=== PATIENT | male | born 1980 | race Caucasian/White ===

== ENCOUNTER 2017-05-13 11:32 | Emergency (ER) | payer OTHER ==
[2017-05-13 11:38] VITALS: O2SAT 96
[2017-05-13] MEDS ORDERED: MOTRIN 600 MG PO ONE (11:41)
[2017-05-13] MEDS ORDERED: MOTRIN 600 MG ONE (11:48)
--- NOTE | 2017-05-13 11:48 | ERPHSYRPT ---
- History of Present Illness Time Seen by Provider: 05/13/17 11:33 Source: patient, family Patient Subjective Stated Complaint: pt states he developed left ankle pain. states pain started 2 days ago. denies any injury. Triage Nursing Assessment: pt pink, warm, dry. no swelling or bruising to ankle noted. pedal pulse strong. Physician History: CC: left ankle pain Hx: 37 y/o patient of Dr Tenorio. He noted left ankle pain for the past few days, feels like ankle is going to give out on him. No fall or injury.No redness or warmth. Some swelling. Takes viocodin at home. Works as security control room officer. He notes accasional left shoulder aching with muscles in spasm. Denies other chest pain. Has some heartburn after greasy meals. Family member inquired about chest pain but he denies and wants no tests of this nature. Lower Extremities Pain: ankle: left Allergies/Adverse Reactions: doxycycline Allergy (Intermediate, Verified 05/13/17 11:38) Rash Home Medications: Hydrocodone Bit/Acetaminophen [Vicodin 5-500 Tablet] 1 each PO TIDPRN 09/07/14 [ History] Clonazepam [Klonopin] 1 mg PO TID 05/13/17 [History] Hx Tetanus, Diphtheria Vaccination/Date Given: Yes (up to date) Hx Influenza Vaccination/Date Given: No Hx Pneumococcal Vaccination/Date Given: No Immunizations Up to Date: Yes - Review of Systems Constitutional: No Fever, No Chills Respiratory: No Dyspnea Cardiac: No Chest Pain Musculoskeletal: Joint Pain (left ankle), Joint Swelling (left ankle), No Fall, No Injury Skin: No Cellulitis, No Rash Neurological: No Headache All Other Systems: Reviewed and Negative - Past Medical History Pertinent Past Medical History: Yes Neurological History: Migraines Cardiac History: No Pertinent History Respiratory History: Other Endocrine Medical History: No Pertinent History Musculoskeletal History: No Pertinent History Psycho-Social History: Anxiety Other Medical History: chronic pain - Past Surgical History Past Surgical History: Yes Other Surgical History: back surgery - Social History Smoking Status: Current every day smoker How long have you smoked: 25 Exposure to second hand smoke: Yes Drug Use: none 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) - Nursing Vital Signs Nursing Vital Signs: Initial Vital Signs Temperature 99.1 F 05/13/17 11:34 Pulse Rate 87 05/13/17 11:34 Respiratory Rate 18 05/13/17 11:34 Blood Pressure 119/73 05/13/17 11:34 O2 Sat by Pulse Oximetry 96 05/13/17 11:34 Pain Scale Pain Intensity 4 - Physical Exam General Appearance: alert Eyes, Ears, Nose, Throat Exam: moist mucous membranes Neck Exam: supple Cardiovascular/Respiratory Exam: normal breath sounds, regular rate/rhythm Hips Exam: left: non-tender Legs Exam: left leg: non-tender Knees Exam: left knee: non-tender, normal inspection Foot Exam: left foot: non-tender, normal inspection, normal range of motion Neuro/Tendon Exam: normal sensation, normal motor functions Mental Status Exam: alert, oriented x 3, cooperative Skin Exam: warm, dry, No rash SpO2 Interpretation: normal SpO2: 96 Oxygen Delivery: Room Air Comments: left ankle has some pain with anterior drawer. No point tenderness, redness, swelling, warmth. Pulses intact. - Course Nursing assessment & vital signs reviewed: Yes - Radiology Exams left ankle X-ray Interpretation: Teleradiologist Report, Negative Ordered Tests: Active Orders 24 hr Category Date Time Status Luis Bandage Application -[facility] STAT Care 05/13/17 11:41 Active Splint STAT Care 05/13/17 11:41 Active ANKLE (3 VIEWS) Stat Exams 05/13/17 11:42 Completed Medication Summary Discontinued Medications Generic Name Dose Route Start Last Admin Trade Name Nyasia PRN Reason Stop Dose Admin Ibuprofen 600 mg 05/13/17 11:41 05/13/17 11:49 Motrin 600 Mg PO 05/13/17 11:42 600 mg STAT ONE Administration Ibuprofen Confirm 05/13/17 11:48 Motrin 600 Mg Administered 05/13/17 11:49 Dose 600 mg .ROUTE .STK-MED ONE - Progress Progress Note: 05/13/17 12:37 Pain better with luis and splint. Likely tendonitis. Instr given. Counseled pt/family regarding: diagnosis, need for follow-up, rad results - Departure Time of Disposition: 12:37 Departure Disposition: Home Clinical Impression: Tendonitis of ankle, left Condition: Stable Critical Care Time: No Referrals: DIANA TENORIO [Primary Care Provider] - Instructions: Tendinopathy, Ankle Pain Additional Instructions: Luis wrap and air cast. Rest. Rx motrin. Follow up with Dr Tenorio. Prescriptions: Ibuprofen 600 mg PO Q6H PRN PRN #24 tablet PRN Reason: Pain
[2017-05-13 12:36] VITALS: BP 112/68; PULSE 74
--- NOTE | 2017-05-13 12:36 | XRAY ---
Indication: Ankle pain. No known injury. Comparison: None 3 views of the left ankle demonstrates normal bones, articulation, and soft tissues.
== END 2017-05-13 12:45 | disposition home or self-care (01) ==
LOC: ED 11:32
DX: M77.52 Other enthesopathy of left foot and ankle (principal); M25.572 Pain in left ankle and joints of left foot; M25.472 Effusion, left ankle
CPT/HCPCS: 73610; 99283; 99284; A9270-GY

== ENCOUNTER 2019-01-14 21:26 | Emergency (ER) | payer OTHER ==
--- NOTE | 2019-01-14 21:36 | ERPHSYRPT ---
- History of Present Illness Time Seen by Provider: 01/14/19 21:36 Source: patient Exam Limitations: no limitations Physician History: 38 y/o right handed white male presents with left upper ext pain after injurying it. pt had been having some discomfort in left elbow for a couple of weeks. working with heavy tools/equipment this afternoon, he injured left upper ext. pain above left elbow, left elbow, left forearm and left wrist. Occurred: this afternoon Method of Injury: direct blow, twisted Quality: constant Severity of Pain-Max: moderate Severity of Pain-Current: moderate Extremities Pain Location: arm: left, elbow: left, forearm: left, wrist: left Modifying Factors: Improves With: movement (worsens) Associated Symptoms: No chest discomfort, No chest pain, No dyspnea, No jaw pain Allergies/Adverse Reactions: doxycycline Allergy (Intermediate, Verified 01/14/19 21:44) Rash Home Medications: Hydrocodone/Acetaminophen [Hydrocodone-Acetamin 5-325 mg] 1 each PO QID PRN [History] Hx Tetanus, Diphtheria Vaccination/Date Given: Yes (up to date) Hx Influenza Vaccination/Date Given: No Hx Pneumococcal Vaccination/Date Given: No - Review of Systems Constitutional: No Symptoms Eyes: No Symptoms Ears, Nose, & Throat: No Symptoms Respiratory: No Symptoms Cardiac: No Symptoms Abdominal/Gastrointestinal: No Symptoms Genitourinary Symptoms: No Symptoms Musculoskeletal: Injury, Joint Pain (left elbow and wrist) Skin: No Symptoms Neurological: No Symptoms Psychological: No Symptoms Endocrine: No Symptoms Hematologic/Lymphatic: No Symptoms Immunological/Allergic: No Symptoms All Other Systems: Reviewed and Negative - Past Medical History Pertinent Past Medical History: Yes Neurological History: No Pertinent History Cardiac History: No Pertinent History Respiratory History: No Pertinent History Endocrine Medical History: No Pertinent History Musculoskeletal History: Degenerative Disk Disease Psycho-Social History: Anxiety Other Medical History: BACK SURGERY 08/2015 - PER PATIENT WAS TOLD HAIRLINE FX RELATED TO UNTREATED SPINA BIFIDA. HAD LOWER SEGMENT FUSED. 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 Nursing Vital Signs: Initial Vital Signs Temperature 98.7 F 01/14/19 21:48 Pulse Rate 79 01/14/19 21:48 Respiratory Rate 18 01/14/19 21:48 Blood Pressure 157/94 01/14/19 21:48 O2 Sat by Pulse Oximetry 98 01/14/19 21:48 Pain Scale Pain Intensity 5 - Physical Exam General Appearance: mild distress, alert, anxiety Eyes, Ears, Nose, Throat Exam: normal ENT inspection, moist mucous membranes Neck Exam: normal inspection, non-tender, supple, full range of motion Cardiovascular/Respiratory Exam: chest non-tender Abdominal Exam: non-tender Back Exam: normal inspection, normal range of motion, No CVA tenderness, No vertebral tenderness Shoulder Exam: normal inspection, non-tender, no evidence of injury, normal ROM Elbow/Forearm Exam: normal inspection, no evidence of injury, bone tenderness, limited ROM, pain, soft tissue tenderness, No deformity Wrist Exam: normal inspection, bone tenderness, limited ROM, soft tissue tenderness, No deformity Hand Exam: normal inspection, non-tender, no evidence of injury, normal ROM Neuro/Tendon Exam: normal sensation, normal motor functions, normal tendon functions Mental Status Exam: alert, oriented x 3, cooperative Skin Exam: normal color, warm, dry SpO2 Interpretation: normal O2 Delivery: Room Air Ordered Tests: Active Orders 24 hr Category Date Time Status ELBOW (MINIMUM 3 VIEWS) Stat Exams 01/14/19 22:11 Taken FOREARM Stat Exams 01/14/19 22:11 Taken HUMERUS Stat Exams 01/14/19 22:11 Taken WRIST (MIN 3 VIEWS) Stat Exams 01/14/19 22:11 Taken Medication Summary Discontinued Medications Generic Name Dose Route Start Last Admin Trade Name Cabreraq PRN Reason Stop Dose Admin Cyclobenzaprine HCl 10 mg 01/14/19 22:43 Cyclobenzaprine 10 Mg PO 01/14/19 22:44 STAT ONE Oxycodone/Acetaminophen 1 tab 01/14/19 22:43 Oxycodone-Acetaminophen 10-325 PO 01/14/19 22:44 STAT STA - Progress Progress: improved, pain not gone completely, re-examined Progress Note: 01/14/19 22:51 all xrays negative for acute process Counseled pt/family regarding: diagnosis, need for follow-up, rad results - Departure Departure Disposition: Home Clinical Impression: Muscle strain, Strain of elbow and forearm Condition: Stable Critical Care Time: No Referrals: DIANA VAZ [Primary Care Provider] - Additional Instructions: take your narcotics as prescribed. follow up with your primary doctor for persistent symptoms Prescriptions: Carisoprodol 350 mg [Soma 350 mg] 350 mg PO Q8H PRN PRN #10 tablet PRN Reason: Muscle Spasms Prednisone 10 mg [Deltasone 10 mg] 10 mg PO TID #12 tablet
[2019-01-14] MEDS ORDERED: OXYCODONE-ACETAMINOPHEN 10-325 PO STA (22:43)
[2019-01-14] MEDS ORDERED: Cyclobenzaprine 10 MG PO ONE (22:43)
[2019-01-14] MEDS ORDERED: Cyclobenzaprine 10 MG ONE (22:52)
[2019-01-14] MEDS ORDERED: OXYCODONE-ACETAMINOPHEN 10-325 ONE (22:53)
[2019-01-14 23:09] VITALS: BP 149/86; PULSE 69; O2SAT 95
--- NOTE | 2019-01-15 09:19 | XRAY ---
Indication: Pain following injury. Comparison: None 2 views of the left humerus demonstrates normal bones, articulation, and soft tissues. Comment: Preliminary interpretation was made by [facility]. No discrepancy.
--- NOTE | 2019-01-15 09:19 | XRAY ---
Indication: Pain following injury. Comparison: None 2 views of the left forearm demonstrates normal bones, articulation, and soft tissues. Comment: Preliminary interpretation was made by [facility]. No discrepancy.
--- NOTE | 2019-01-15 09:19 | XRAY ---
Indication: Pain following injury. Comparison: None 3 views of the left wrist demonstrates normal bones, articulation, and soft tissues. Comment: Preliminary interpretation was made by [facility]. No discrepancy.
--- NOTE | 2019-01-15 09:24 | XRAY ---
Indication: Pain following injury. Comparison: None 3 views of the left elbow demonstrates normal bones, articulation, and soft tissues. Comment: Preliminary interpretation was made by [facility]. No discrepancy.
== END 2019-01-14 23:23 | disposition home or self-care (01) ==
LOC: ED 21:26
DX: S56.912A Strain of unspecified muscles, fascia and tendons at forearm level, left arm, initial encounter (principal); S46.812A Strain of other muscles, fascia and tendons at shoulder and upper arm level, left arm, initial encounter; M79.622 Pain in left upper arm; M25.522 Pain in left elbow; M25.532 Pain in left wrist; W22.8XXA Striking against or struck by other objects, initial encounter; X50.1XXA Overexertion from prolonged static or awkward postures, initial encounter
CPT/HCPCS: 73060; 73080; 73090; 73110; 99284; A9270-GY

== ENCOUNTER 2022-09-14 22:40 | Emergency (ER) | payer OTHER ==
[2022-09-14 23:06] VITALS: O2SAT 98
[2022-09-14] MEDS ORDERED: TORAdol 30 mg Injection IM ONE (23:13)
[2022-09-14] MEDS ORDERED: TORAdol 30 mg Injection ONE (23:23)
--- NOTE | 2022-09-14 23:27 | ERPHSYRPT ---
- History of Present Illness Time Seen by Provider: 09/14/22 22:42 Source: patient Exam Limitations: no limitations Patient Subjective Stated Complaint: pt states "I feel like there is something behind my shoulder. I was tossing and turning and can't get comfortable. It fe els like it is popping in and out." Triage Nursing Assessment: pt ambulated into the er; pt is axo x4; c/o left shoulder pain/ left upper back pain; pt states 6/10 pain to left shoulder; limited ROM to LUE; good cap refill to LUE; strong left radial pulse; hypertensive; skin PDW Physician History: 42 years old male with a history of hypertension presented in the ER with chief complaint of left shoulder blade area pain. Patient reported he was seen at chiropractor and after some manipulation he started to have increasing pain in the left shoulder blade, more with movements of shoulder and cannot find it comfortable spot. No midline back pain. Does have chronic neck pain which is not any worse than usual. Pain radiates to the left upper arm and up to elbow. No numbness or weakness of left upper extremity. Occurred: other Quality: sharpness Severity of Pain-Max: moderate Severity of Pain-Current: moderate Extremities Pain Location: shoulder: left Modifying Factors: Improves With: immobilization. Worsens With: movement Associated Symptoms: back pain, neck pain Allergies/Adverse Reactions: doxycycline Allergy (Intermediate, Verified 09/14/22 22:57) Rash Hx Tetanus, Diphtheria Vaccination/Date Given: Yes (up to date) Hx Influenza Vaccination/Date Given: No Hx Pneumococcal Vaccination/Date Given: No Travel Risk - International Travel Have you traveled outside of the country in past 3 weeks: No - Coronavirus Screening Are you exhibiting any of the following symptoms?: No Close contact with a COVID-19 positive Pt in past 14-21 Days: No - Vaccine Status Have you recieved a Covid-19 vaccination: No - Review of Systems Constitutional: No Symptoms Eyes: No Symptoms Ears, Nose, & Throat: No Symptoms Respiratory: No Symptoms Cardiac: No Symptoms Abdominal/Gastrointestinal: No Symptoms Genitourinary Symptoms: No Symptoms Musculoskeletal: Other (Tenderness left lower scapula) Neurological: No Symptoms Endocrine: No Symptoms Hematologic/Lymphatic: No Symptoms - Past Medical History Pertinent Past Medical History: Yes Neurological History: No Pertinent History ENT History: No Pertinent History Cardiac History: No Pertinent History Respiratory History: No Pertinent History Endocrine Medical History: No Pertinent History Musculoskeletal History: Degenerative Disk Disease GI Medical History: No Pertinent History History: No Pertinent History Psycho-Social History: Anxiety Male Reproductive Disorders: No Pertinent History Other Medical History: BACK SURGERY 08/2015 - PER PATIENT WAS TOLD HAIRLINE FX RELATED TO UNTREATED SPINA BIFIDA. HAD LOWER SEGMENT FUSED. 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 Nursing Vital Signs: Initial Vital Signs Temperature 97.8 F 09/14/22 22:58 Pulse Rate 66 09/14/22 22:58 Respiratory Rate 14 09/14/22 22:58 Blood Pressure 158/83 09/14/22 22:58 O2 Sat by Pulse Oximetry 98 09/14/22 22:58 Pain Scale Pain Intensity 6 - Physical Exam General Appearance: no apparent distress, alert Eyes, Ears, Nose, Throat Exam: normal ENT inspection Neck Exam: normal inspection, non-tender, supple, full range of motion Cardiovascular/Respiratory Exam: normal breath sounds, regular rate/rhythm Back Exam: normal inspection, normal range of motion Shoulder Exam: normal inspection, no evidence of injury, limited ROM (Left shoulder. Mild tenderness of the left scapula. No midline tenderness or paraspinal tenderness at all) Elbow/Forearm Exam: normal inspection, non-tender, no evidence of injury, ecchymosis Wrist Exam: normal inspection, non-tender, no evidence of injury, normal ROM Hand Exam: normal inspection, non-tender, no evidence of injury, normal ROM Neuro/Tendon Exam: normal sensation, normal motor functions Mental Status Exam: alert, oriented x 3, cooperative Skin Exam: normal color SpO2 Interpretation: normal SpO2: 98 O2 Delivery: Room Air Ordered Tests: Active Orders 24 hr Category Date Time Status SHOULDER Stat Exams 09/14/22 Ordered Medication Summary Discontinued Medications Generic Name Dose Route Start Last Admin Trade Name Freq PRN Reason Stop Dose Admin Ketorolac Tromethamine 30 mg 09/14/22 23:13 09/14/22 23:24 Ketorolac Tromethamine 30 Mg/Ml Inj IM 09/14/22 23:14 30 mg STAT ONE Administration Ketorolac Tromethamine Confirm 09/14/22 23:23 Ketorolac Tromethamine 30 Mg/Ml Inj Administered 09/14/22 23:24 Dose 30 mg .ROUTE .STK-MED ONE - Progress Progress: improved, pain not gone completely, re-examined Progress Note: Given Toradol for symptomatic relief. Has improvement in the range of motion. X-rays negative for fracture dislocation reviewed by me, official report is pending. Recommended NSAIDs and outpatient orthopedic follow-up. Counseled pt/family regarding: diagnosis, need for follow-up, rad results - Departure Departure Disposition: Home Clinical Impression: Acute shoulder pain Condition: Stable Critical Care Time: No Referrals: DIANA VAZ [Primary Care Provider] - Follow Up with PCP/3 days ORTHO - ROD BORGES TECHNICAL COORDINATOR [NON-STAFF PHY W/O PRIVILEGES] - Follow up/PCP as directed (In 2 days for reevaluation) Instructions: Shoulder Tendinopathy (DC) Prescriptions: Diclofenac Sodium 50 mg PO TID PRN 7 Days #20 tab PRN Reason: Pain
[2022-09-15 00:15] VITALS: BP 125/99; PULSE 54
--- NOTE | 2022-09-15 08:12 | XRAY ---
Indication: Pain. No known injury. Comparison: November 18, 2010 3 view left shoulder obtained. Again no bony, articular, or soft tissue abnormalities.
== END 2022-09-15 00:24 | disposition home or self-care (01) ==
LOC: ED 22:40
DX: M25.512 Pain in left shoulder (principal); I10 Essential (primary) hypertension; Z28.310 Unvaccinated for COVID-19; Z72.0 Tobacco use
CPT/HCPCS: 73030; 96372; 99283; J1885

== ENCOUNTER 2023-03-02 23:22 | Emergency (ER) | payer OTHER ==
[2023-03-02 23:56] VITALS: O2SAT 96
--- NOTE | 2023-03-03 00:22 | ERPHSYRPT ---
- History of Present Illness Source: patient Exam Limitations: no limitations Patient Subjective Stated Complaint: R shoulder pain x2 days Triage Nursing Assessment: pt ambulatory to bed by self, pt alert and oriented x3, skin pwd, pt c/o R shoulder pain, denies any injury, pt rating pain as a 3/10 achy constant pain Physician History: 42 yo WM w R shoulder pain x 2 days. He denies injury and pain is worse w movement. Pt is R handed and works on [employer]. Pain is 3/10 and better since he took his hydrocodone which he takes for chronic back pain. Chest pain/dyspnea are denied. Occurred: days ago (2 days) Method of Injury: unknown Quality: constant Severity of Pain-Max: moderate Severity of Pain-Current: mild Extremities Pain Location: shoulder: right Modifying Factors: Improves With: movement Associated Symptoms: none Allergies/Adverse Reactions: doxycycline Allergy (Intermediate, Verified 09/14/22 22:57) Rash Hx Tetanus, Diphtheria Vaccination/Date Given: Yes (up to date) Hx Influenza Vaccination/Date Given: No Hx Pneumococcal Vaccination/Date Given: No Immunizations Up to Date: Yes Travel Risk - International Travel Have you traveled outside of the country in past 3 weeks: No - Coronavirus Screening Are you exhibiting any of the following symptoms?: No Close contact with a COVID-19 positive Pt in past 14-21 Days: No - Vaccine Status Have you recieved a Covid-19 vaccination: No - Review of Systems Constitutional: No Symptoms Eyes: No Symptoms Ears, Nose, & Throat: No Symptoms Respiratory: No Symptoms Cardiac: No Symptoms Abdominal/Gastrointestinal: No Symptoms Genitourinary Symptoms: No Symptoms Skin: No Symptoms Neurological: No Symptoms Psychological: No Symptoms Endocrine: No Symptoms Hematologic/Lymphatic: No Symptoms Immunological/Allergic: No Symptoms - Past Medical History Pertinent Past Medical History: Yes Neurological History: No Pertinent History ENT History: No Pertinent History Cardiac History: Hypertension Respiratory History: No Pertinent History Endocrine Medical History: No Pertinent History Musculoskeletal History: Degenerative Disk Disease GI Medical History: No Pertinent History History: No Pertinent History Psycho-Social History: Anxiety Male Reproductive Disorders: No Pertinent History Other Medical History: BACK SURGERY 08/2015 - PER PATIENT WAS TOLD HAIRLINE FX RELATED TO UNTREATED SPINA BIFIDA. HAD LOWER SEGMENT FUSED. 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 Nursing Vital Signs: Initial Vital Signs Temperature 98.2 F 03/02/23 23:55 Pulse Rate 83 03/02/23 23:55 Respiratory Rate 18 03/02/23 23:55 Blood Pressure 162/101 03/02/23 23:55 O2 Sat by Pulse Oximetry 96 03/02/23 23:55 Pain Scale Pain Intensity 3 Hypertensive - Physical Exam General Appearance: no apparent distress Eyes, Ears, Nose, Throat Exam: normal ENT inspection, TMs normal, pharynx normal, moist mucous membranes Neck Exam: normal inspection, non-tender, supple, full range of motion, No Brudzinski, No Kernig's, No meningismus, No carotid bruit Cardiovascular/Respiratory Exam: chest non-tender, normal breath sounds, regular rate/rhythm, heart sounds normal Abdominal Exam: non-tender, soft Back Exam: normal inspection Shoulder Exam: bone tenderness (R shoulder TTP superiorly/Pain w abduction and external rotation/Good radial pulse, distal sensation, and capillary return) Elbow/Forearm Exam: normal inspection, non-tender, no evidence of injury Wrist Exam: normal inspection, non-tender, no evidence of injury Hand Exam: normal inspection, non-tender, no evidence of injury DTR - Upper Extremity Exam: bicep (R): 2+, bicep (L): 2+ Neuro/Tendon Exam: normal sensation, normal motor functions, responds to pain Mental Status Exam: alert, oriented x 3 Skin Exam: normal color, warm SpO2 Interpretation: normal SpO2: 96 O2 Delivery: Room Air - Course Nursing assessment & vital signs reviewed: Yes Ordered Tests: Active Orders 24 hr Category Date Time Status Sling Application STAT Care 03/03/23 00:15 Completed - Progress Progress Note: 03/03/23 00:20 Nursing note and vital signs reviewed No food or housing insecurities noted Pt refused all pain meds as he stated he can take his hydrocodone Pt most likely had R rotator cuff tendonitis vs a tear. He asked for a sling which was applied by nursing/NVI Pt wo chest pain or dyspnea in ER. 03/03/23 00:53 Counseled pt/family regarding: diagnosis, need for follow-up Medical Desision Making - Independent Historian Additional History obtained from: Spouse - Risk of complications Low Risk: Low risk of morbidity from additional dx testing or treatment - Departure Departure Disposition: Home Clinical Impression: Shoulder pain, right Condition: Stable Critical Care Time: No Referrals: DIANA VAZ [Primary Care Provider] - Follow up/PCP as directed ORTHO - ROD BORGES NP [NON-STAFF PHY W/O PRIVILEGES] - Follow up/PCP as directed Instructions: Shoulder Tendinopathy (DC) Additional Instructions: Rest/Heat Continue with home pain meds Follow up in Ortho Clinic M-Fr 8-10AM
[2023-03-03 00:37] VITALS: BP 147/106; PULSE 71
== END 2023-03-03 00:42 | disposition home or self-care (01) ==
LOC: ED 23:22
DX: M25.511 Pain in right shoulder (principal); I10 Essential (primary) hypertension; Z79.891 Long term (current) use of opiate analgesic; Z28.310 Unvaccinated for COVID-19; Z72.0 Tobacco use
CPT/HCPCS: 99281